=== PATIENT | female | born 1995 | race Caucasian/White ===

== ENCOUNTER 2019-02-11 11:45 | Emergency (ER) | payer BC, MEDICAID ==
[~2019-02-11] VITALS: Ht 167.6 cm; Wt 76.2 kg
[2019-02-11 11:52] VITALS: BP_SYST 135
[2019-02-11] MEDS ORDERED: IBUPROFEN 800 MG TABLET PO ONE (12:30)
[2019-02-11 13:43] VITALS: BP_SYST 135
[2019-02-11] MEDS ORDERED: traMADol HCL HCL 50 MG TABLET (ULTRAM) PO ONE (13:45)
== END 2019-02-11 13:43 | disposition home or self-care (01) ==
LOC: SED 11:45
DX: S90.31XA Contusion of right foot, initial encounter (principal); R03.0 Elevated blood-pressure reading, without diagnosis of hypertension; Z88.1 Allergy status to other antibiotic agents; Z88.0 Allergy status to penicillin; Z88.8 Allergy status to other drugs, medicaments and biological substances; X58.XXXA Exposure to other specified factors, initial encounter; Y93.89 Activity, other specified; Y92.89 Other specified places as the place of occurrence of the external cause; Y99.8 Other external cause status
CPT/HCPCS: 99283

== ENCOUNTER 2019-04-24 20:28 | Emergency (ER) | payer BC | END 2019-04-24 21:07 | disposition left against medical advice (07) | LOC: SED 20:28 | DX: R10.9 Unspecified abdominal pain (principal); Z53.21 Procedure and treatment not carried out due to patient leaving prior to being seen by health care provider ==

== ENCOUNTER 2019-06-27 16:49 | Emergency (ER) | payer BC ==
[~2019-06-27] VITALS: Ht 162.6 cm; Wt 81.6 kg
[2019-06-27 17:08] VITALS: BP_SYST 141
--- NOTE | 2019-06-27 19:08 | NUR ---
Patient to ER bed 6 to gown for evaluation. Side rails up. Report given to ESTHER Fuentes.
--- NOTE | 2019-06-27 19:08 | NUR ---
Pt c/o a red, raised, painful and itchy rash to left buttocks since earlier today. Pt states that pain has intensified up to 11/14.
--- NOTE | 2019-06-27 19:30 | NUR ---
Sofy Garcia, [employer] at bedside.
[2019-06-27 20:20] VITALS: BP_SYST 132
--- NOTE | 2019-06-27 20:20 | NUR ---
Patient given written and verbal discharge instructions and verbalizes understanding. ER MD discussed with patient the results and treatment provided. Patient in stable condition. ID arm band removed. Rx of Motrin, [place], Valacyclovir given. Patient educated on pain management and to follow up with PMD. Pain Scale 1/10. Opportunity for questions provided and answered. Medication side effect fact sheet provided.
== END 2019-06-27 20:20 | disposition home or self-care (01) ==
LOC: SED 16:49
DX: B02.9 Zoster without complications (principal); R03.0 Elevated blood-pressure reading, without diagnosis of hypertension; Z88.1 Allergy status to other antibiotic agents; Z88.0 Allergy status to penicillin; Z88.8 Allergy status to other drugs, medicaments and biological substances
CPT/HCPCS: 99283

== ENCOUNTER 2019-09-11 01:42 | Emergency (ER) | payer BC ==
[~2019-09-11] VITALS: Ht 162.6 cm; Wt 81.6 kg
[2019-09-11 01:42] VITALS: BP_SYST 128
[2019-09-11] MEDS ORDERED: LIDOCAINE 1%, 20 ML MDV 20 ML ONE (02:44)
[2019-09-11] MEDS ORDERED: BACITRACIN 1 GM OINT TP ONE (02:44)
[2019-09-11 03:37] VITALS: BP_SYST 128
== END 2019-09-11 03:37 | disposition home or self-care (01) ==
LOC: SED 01:42
DX: S51.812A Laceration without foreign body of left forearm, initial encounter (principal); Z88.0 Allergy status to penicillin; Z88.2 Allergy status to sulfonamides; Z88.1 Allergy status to other antibiotic agents; X99.8XXA Assault by other sharp object, initial encounter; Y93.89 Activity, other specified; Y92.89 Other specified places as the place of occurrence of the external cause; Y99.8 Other external cause status
CPT/HCPCS: 12001; 99283; J2001